=== PATIENT | male | born 1995 | race Caucasian/White ===

== ENCOUNTER 2017-11-08 19:41 | Emergency (ER) | payer OTHER ==
--- NOTE | 2017-11-08 20:01 | PDOC ---
Rapid Medical Evaluation Chief Complaint: Pain Time Seen by Provider: 11/08/17 19:57 Medical Evaluation: 11/08/17 19:59 I have performed a brief in person evaluation of this patient. The patient presents with a CC of: left otalgia and facial pain. HPI: Pt is a 22 YO male who complains of left otalgia x 3-4 days. Pt denies excessive water exposure. PE: Skin: Clear Heart: RRR Lungs: Clear MS: Moves all extremities without difficulty Neuro: Appropriate affect Psych: appropriate affect I have ordered: nothing ordered at this time. The patient will proceed to the ED for further evaluation. Discharge Disposition - Diagnosis Otalgia of left ear - Referrals Referrals: Sintia Rm MD [Primary Care Provider] - - Patient Instructions - Post Discharge Activity
[2017-11-08 20:05] VITALS: BP 145/83; PULSE 85; TEMP 99.2; BMI 35.4
[2017-11-08] MEDS ORDERED: ACETAMINOPHEN 500 MG TABLET (FP) PO ONE (20:23)
[2017-11-08] MEDS ORDERED: ACETAMINOPHEN 500 MG TABLET (FP) ONE (20:26)
--- NOTE | 2017-11-08 20:26 | PDOC ---
History of Present Illness - General Chief Complaint: Pain Stated Complaint: Ear Problem Time Seen by Provider: 11/08/17 19:57 - History of Present Illness Initial Comments: 22-year-old male without comorbidities presents for evaluation of 3 days of atraumatic left ear pain. No other associated symptoms. 11/08/17 20:24 Past History - Past Medical History Allergies/Adverse Reactions: Allergies Allergy/AdvReac Type Severity Reaction Status Date / Time No Known Allergies Allergy Verified 11/08/17 20:03 Home Medications: Ambulatory Orders Ciprofloxacin HCl/Dexameth [Ciprodex Otic Suspension] 4 drop BID 7 Days #1 bottle 11/08/17 COPD: No - Suicide/Smoking/Psychosocial Hx Smoking History: Never smoked Have you smoked in the past 12 months: No Information on smoking cessation initiated: No Hx Alcohol Use: No Drug/Substance Use Hx: No Substance Use Type: None Review of Systems - Review of Systems HEENTM: Yes: Ear Pain All Other Systems: Reviewed and Negative *Physical Exam - Vital Signs Last Vital Signs Temp Pulse Resp BP Pulse Ox 99.2 F 85 17 145/83 100 11/08/17 20:00 11/08/17 20:00 11/08/17 20:00 11/08/17 20:00 11/08/17 20:00 - Physical Exam Comments: HEAD: NC/AT EYES: Conjuntiva clear Ears: Right ear canal and tympanic membrane are normal, left ear canal is ear thymic with exudate tympanic membrane mildly erythemic there is a left-sided periauricular lymph node which is tender NOSE: No d/c THROAT: Moist mucous membrances, oral pharanx clear, uvula midline NECK: Supple without adenopathy CARDIAC: S1 S2 LUNGS: CTA Full and Equal breath sounds ABDOMEN: Soft NT ND MS: Full ROM in all joints without edema NEUROLOGIC: No gross sensory or motor deficits, NVID SKIN: Normal color and temperature no lesions or rashes 11/08/17 20:24 *DC/Admit/Observation/Transfer Diagnosis at time of Disposition: Otalgia of left ear, Otitis externa - Discharge Dispostion Disposition: HOME Condition at time of disposition: Stable Decision to Admit order: No - Prescriptions Prescriptions: Ciprofloxacin HCl/Dexameth [Ciprodex Otic Suspension] 4 drop BID 7 Days #1 bottle - Referrals Referrals: Sintia Rm MD [Primary Care Provider] - - Patient Instructions Printed Discharge Instructions: Otitis Externa, DI for Otitis Externa Additional Instructions: Return to the emergency room should worsen or go unresolved. Please take the antibiotic drops as directed. Please follow-up with your primary care physician once 2 days further evaluation and treatment options. - Post Discharge Activity
== END 2017-11-08 21:05 | disposition home or self-care (01) ==
LOC: JERFT 19:41
DX: H60.502 Unspecified acute noninfective otitis externa, left ear (principal)
CPT/HCPCS: 99281-25

== ENCOUNTER 2017-11-17 22:31 | Emergency (ER) | payer OTHER ==
--- NOTE | 2017-11-17 22:39 | PDOC ---
History of Present Illness - General History Source: Patient Exam Limitations: No Limitations - History of Present Illness Initial Comments: 11/17/17 23:19 The patient is a year 22 old male, with no significant PMH, who presents to the emergency department complaining of a fever (101) that began in the afternoon. The patient states he endorses associated symptoms of headache, abdomen pain and general malaise, no relief with Tylenol. The patient reports 10 episodes of non bilious and non bilious diarrhea. The patient also mentioned he noticed symptoms began 1 hour after having a chicken sandwich at [employer]. The patient denies chest pain, shortness of breath. Denies chills, nausea, vomit and constipation.Denies dysuria, frequency, urgency and hematuria. PAST MEDICAL HISTORY: no significant history PAST SURGICAL HISTORY: no significant history FAMILY HISTORY: no pertinent history SOCIAL HISTORY: Pt lives with family and is employed. MEDICATIONS: reviewed ALLERGIES: As per nursing notes Adult ROS General: +fevers,+weakness. No chills, no weight loss HEENT: No change in vision. No sore throat,. No ear pain CardioVascular: No chest pain or shortness of breath Respiratory:No cough, or wheezing. Gastrointestinal: +Diarrhea. no nausea, vomiting or constipation, No rectal bleeding Genitourinary: No dysuria, hematuria, or frequency Musculoskeletal: No joint or muscle pain or swelling Neurologic:+ headache. No vertigo, dizziness or loss of consciousness Psychiatric: nor depression Skin: No rashes or easy bruising Endocrine: no increased thirst or abnormal weight change Allergic: no skin or latex allergy All other systems reviewed and normal Adult Exam: General: Well-nourished well-developed individual, no acute distress HEENT: Throat: +Mild erythema to the pharynx. No exudate. Neck: Supple, no meningeal signs, no lymphadenopathy Eyes::Pupils equal reactive and round, extraocular motion intact Chest: Nontender to palpation Cardiac:+Tachycardia. No murmurs rubs or gallops Respiratory: Lungs clear to auscultation bilateral Abdomen: Soft, nondistended, normal bowel sounds, nontender to palpation diffusely Extremities: Warm, dry, no cyanosis, clubbing, or edema Skin: No rashes Neuro: Alert and oriented x3, nonfocal exam, grossly intact, normal gait Psych: Normal mood and affect <Rachel Pacheco - Last Filed: 11/17/17 23:19> - General History Source: Patient Exam Limitations: No Limitations - History of Present Illness Initial Comments: 11/17/17 23:31 A portion of this note was documented by scribe services under my direction. I have reviewed the details of the note, within reason, and agree with the documentation. The case summary and management plan written by me. Assessment and plan: This is a 22-year-old male who comes in complaining of approximately 10 hours of fever, headache, body aches and diarrhea. Symptoms began approximately 1 hour after eating chicken at [employer]. It is unclear as to whether or not this is a food related illness or a viral illness. However either way it will run its course. I recommended that patient stay well hydrated with some Gatorade, alternate Tylenol with Motrin for fever if needed and to get some Imodium and take as directed on the bottle. Patient given some Imodium and Motrin here in the emergency department. Patient discharged home with his mother and will follow up with his primary care doctor as needed <Gadiel Rosario I - Last Filed: 11/17/17 23:37> - General Chief Complaint: Cold Symptoms Stated Complaint: FEVER/MALAISE Time Seen by Provider: 11/17/17 22:38 Past History <Rachel Pacheco - Last Filed: 11/17/17 23:19> - Past Medical History COPD: No - Suicide/Smoking/Psychosocial Hx Smoking History: Never smoked Have you smoked in the past 12 months: No Hx Alcohol Use: No Drug/Substance Use Hx: No Substance Use Type: None <Gadiel Rosario I - Last Filed: 11/17/17 23:37> - Past Medical History Allergies/Adverse Reactions: Allergies Allergy/AdvReac Type Severity Reaction Status Date / Time No Known Allergies Allergy Verified 11/08/17 20:03 Home Medications: Ambulatory Orders NK [No Known Home Medication] 11/17/17 *Physical Exam - Vital Signs Last Vital Signs Temp Pulse Resp BP Pulse Ox 100.7 F H 102 H 16 126/73 98 11/17/17 22:37 11/17/17 22:37 11/17/17 22:37 11/17/17 22:37 11/17/17 22:37 <Rachel Pacheco - Last Filed: 11/17/17 23:19> ED Treatment Course - Medications Given in the ED: ED Medications Discontinued Medications Generic Name Dose Route Start Last Admin Trade Name Josh ESTRADA Reason Stop Dose Admin Ibuprofen 800 mg 11/17/17 23:00 11/17/17 23:04 Motrin - PO 11/17/17 23:01 800 mg ONCE ONE Administration Loperamide HCl 4 mg 11/17/17 23:01 11/17/17 23:05 Imodium - PO 11/17/17 23:02 4 mg ONCE ONE Administration <Rachel Pacheco - Last Filed: 11/17/17 23:19> *DC/Admit/Observation/Transfer - Attestations Scribe Attestion: 11/17/17 23:19 Documentation prepared by Rachel Pacheco, acting as medical records auditor for Gadiel Rosario MD. <Rachel Pacheco - Last Filed: 11/17/17 23:19> - Discharge Dispostion Decision to Admit order: No <Gadiel Rosario I - Last Filed: 11/17/17 23:37> Diagnosis at time of Disposition: Fever and chills Diarrhea Qualifiers: Diarrhea type: unspecified type Qualified Code(s): R19.7 - Diarrhea, unspecified - Discharge Dispostion Disposition: HOME Condition at time of disposition: Stable - Referrals Referrals: Sintia Rm MD [Primary Care Provider] - - Patient Instructions Additional Instructions: For the fevers you can alternate acetaminophen with ibuprofen as needed every 4- 6 hours. Purchase some [id number] Imodium and take as directed on the bottle. Make sure your stay well hydrated with Gatorade or Powerade. Return to the emergency department immediately with ANY new, persistent or worsening symptoms. Continue any medications as previously prescribed by your physician. You should follow up with your primary doctor as soon as possible regarding today's emergency department visit. . Please make sure your doctor reviews the results of your emergency evaluation. Thank you for coming to the Emergency Department today for your care. It was a pleasure to see you today. Please note that your evaluation is INCOMPLETE until you follow-up with your doctor. - Post Discharge Activity
[2017-11-17 22:40] VITALS: BP 126/73; PULSE 102; TEMP 100.7; BMI 35.4
[2017-11-17] MEDS ORDERED: IBUPROFEN 400 MG TABLET (FP) PO ONE ×2 (23:00→23:03)
[2017-11-17] MEDS ORDERED: LOPERAMIDE HCL 2 MG CAPSULE PO ONE (23:01)
[2017-11-17] MEDS ORDERED: LOPERAMIDE HCL 2 MG CAPSULE ONE (23:03)
== END 2017-11-17 23:41 | disposition home or self-care (01) ==
LOC: FER 22:31
DX: R50.9 Fever, unspecified (principal); R19.7 Diarrhea, unspecified
CPT/HCPCS: 99281-25